=== PATIENT | female | born 1945 | race Two or more races ===

== ENCOUNTER 2022-08-09 20:46 | Inpatient (IN) | payer OTHER ==
[~2022-08-09] VITALS: Ht 157.5 cm; Wt 76.2 kg
[2022-08-09 23:08] LABS: Calcium 8.3 mg/dL (8.5-10.1); Potassium 3.9 mmol/L (3.5-5.1)
[2022-08-09 23:13] LABS: Albumin 2.6 g/dL (3.4-5.0); BUN/Creatinine Ratio 45.8
[2022-08-09 23:15] LABS: Basophils # (auto) 0.1 10 ^3/uL (0-0.2); Basophils % (auto) 0.6 % (0.0-2.0); Bilirubin, Total 1.1 mg/dL (0.2-1.0); Eosinophils # (auto) 0 10 ^3/uL (0-0.8); Eosinophils % (auto) 0.2 % (0.0-7.0); Hematocrit 28.1 % (36.0-46.0); Lymphocytes % (auto) 20.3 % (10.0-50.0); Mean Corpuscular Hgb Conc. 32.1 g/dL (32.0-36.0); Mean Corpuscular Volume 84.1 fL (80.0-100.0); Monocytes # (auto) 0.5 10 ^3/uL (0-1.3); Monocytes % (auto) 5.1 % (0.0-12.0); Neutrophils # (auto) 7.2 10 ^3/uL (1.6-8.6); Neutrophils % (auto) 73.8 % (37.0-80.0); Red Blood Cells 3.34 10^6/uL (4.0-5.20); Red Cell Distribution Width 14.3 % (11.8-14.3); Total Protein 6.3 g/dL (6.4-8.2); White Blood Cell 9.8 10^3/uL (4.4-10.8)
[2022-08-09] MEDS ORDERED: PANTOPRAZOLE 80 MG in SODIUM CHL 0.9% 100 ML IV ONE (23:15)
[2022-08-09] MEDS ORDERED: PANTOPRAZOLE 40mg/50ML NS AE 50 ML IV ONE (23:15)
[2022-08-09] MEDS ORDERED: ONDANSETRON HCL 4 MG/2 ML VIAL IV ONE (23:45)
[2022-08-09] MEDS ORDERED: diphenhdrAMINE HCL 50 MG/1 ML VL IV ONE (23:45)
[2022-08-09] MEDS ORDERED: METOCLOPRAMIDE HCL 5MG/ml INJ 2ml VIAL IV ONE (23:45)
[2022-08-09] MEDS ORDERED: LACTATED RINGER'S 2,000 ML IV ONE (23:45)
[2022-08-09] MEDS ORDERED: IOHEXOL 350 MG/ML 100ML IJ ONE (23:52)
[2022-08-09 23:53] LABS: INR 1.13 (0.9-1.15); Partial Thromboplastin Time 23.5 sec (24.6-33.4)
[2022-08-10] MEDS ORDERED: ONDANSETRON HCL 4 MG/2 ML VIAL ONE (00:20)
[2022-08-10 00:25] LABS: Lactic Acid w/Reflex 2.8 mmol/L (0.4-2.0)
[2022-08-10] MEDS ORDERED: PANTOPRAZOLE 80 MG in SODIUM CHL 0.9% 100 ML IV ONE (00:30)
[2022-08-10] MEDS ORDERED: PANTOPRAZOLE 40 MG/10 ML VIAL INJ IV ONE (00:41)
[2022-08-10] MEDS ORDERED: LORazepam 2MG/ML-1ML VIAL IV ONE (01:45)
[2022-08-10] MEDS ORDERED: cefTRIAXone SOD 1,000 MG VL IV ONE (03:15)
[2022-08-10] MEDS ORDERED: ACETAMINOPHEN 325 MG TAB PO PRN (03:30)
[2022-08-10] MEDS ORDERED: DOCUSATE SOD 100 MG CAP PO PRN (03:30)
[2022-08-10] MEDS ORDERED: TEMAZEPAM 15 MG CAP PO PRN (03:30)
[2022-08-10] MEDS ORDERED: hydrALAZINE HCL 20 MG/ML VL IV PRN (03:30)
[2022-08-10] MEDS ORDERED: NITROGLYCERIN 0.4 MG SL TAB SL PRN (04:30)
[2022-08-10] MEDS ORDERED: MORPHINE SULFATE INJ 2 MG/ml SYRG IV PRN (04:30)
[2022-08-10] MEDS: SODIUM CHLORIDE 0.9% 1,000 ML IV SCH ×2 (06:08→20:27)
[2022-08-10] MEDS: metroNIDAZOLE 500MG/100ML 100 ML IV SCH ×3 (06:37→22:37)
[2022-08-10] MEDS ORDERED: cefTRIAXone 1GM/50ML D5W 50 ML IV ONE (06:45)
[2022-08-10 07:33] LABS: Potassium 3.7 mmol/L (3.5-5.1)
[2022-08-10 07:46] LABS: Albumin 2.5 g/dL (3.4-5.0); BUN/Creatinine Ratio 57.6; Calcium 7.6 mg/dL (8.5-10.1); Total Protein 5.7 g/dL (6.4-8.2)
[2022-08-10 08:13] LABS: Basophils # (auto) 0 10 ^3/uL (0-0.2); Eosinophils # (auto) 0 10 ^3/uL (0-0.8); Hematocrit 24.2 % (36.0-46.0); Hemoglobin 7.9 g/dL (12.2-16.2); Mean Corpuscular Volume 83.7 fL (80.0-100.0); Monocytes # (auto) 0.5 10 ^3/uL (0-1.3); Nucleated Red Blood Cells % 0.1 %
[2022-08-10 08:15] LABS: Basophils % (auto) 0.3 % (0.0-2.0); Lymphocytes # (auto) 2.8 10 ^3/uL (0.4-5.4); Lymphocytes % (auto) 30.1 % (10.0-50.0); Mean Corpuscular Hemoglobin 27.1 pg (28.0-32.0); Mean Corpuscular Hgb Conc. 32.4 g/dL (32.0-36.0); Monocytes % (auto) 5.4 % (0.0-12.0); Neutrophils # (auto) 5.9 10 ^3/uL (1.6-8.6); Neutrophils % (auto) 64.2 % (37.0-80.0); Red Cell Distribution Width 14.2 % (11.8-14.3); White Blood Cell 9.2 10^3/uL (4.4-10.8)
[2022-08-10] MEDS ORDERED: PANTOPRAZOLE 40 MG/10 ML VIAL INJ IV SCH (10:00)
[2022-08-10 12:51] LABS: Urine Bacteria MANY /hpf (None Seen); Urine Blood Negative /uL (Negative); Urine Mucus FEW (None Seen); Urine Specific Gravity 1.047 (1.001-1.035); Urine WBC 1 /hpf (0 - 5)
[2022-08-10 14:26] LABS: Basophils # (auto) 0 10 ^3/uL (0-0.2); Basophils % (auto) 0.3 % (0.0-2.0); Eosinophils # (auto) 0 10 ^3/uL (0-0.8); Eosinophils % (auto) 0.3 % (0.0-7.0); Hematocrit 23.1 % (36.0-46.0); Hemoglobin 7.3 g/dL (12.2-16.2); Lymphocytes % (auto) 40.6 % (10.0-50.0); Mean Corpuscular Hemoglobin 26.7 pg (28.0-32.0); Mean Corpuscular Hgb Conc. 31.9 g/dL (32.0-36.0); Mean Corpuscular Volume 83.9 fL (80.0-100.0); Monocytes # (auto) 0.5 10 ^3/uL (0-1.3); Monocytes % (auto) 6.5 % (0.0-12.0); Neutrophils # (auto) 3.9 10 ^3/uL (1.6-8.6); Neutrophils % (auto) 52.3 % (37.0-80.0); Nucleated Red Blood Cells % 0.1 %; Red Blood Cells 2.75 10^6/uL (4.0-5.20); Red Cell Distribution Width 14.3 % (11.8-14.3); White Blood Cell 7.4 10^3/uL (4.4-10.8)
[2022-08-10] MEDS ORDERED: OCTREOTIDE ACETATE 100 MCG in SODIUM CHL 0.9% 50 ML IV ONE (14:45)
[2022-08-10] MEDS ORDERED: OCTREOTIDE ACETATE 500 MCG in SODIUM CHL 0.9% 99 ML IV SCH (14:45)
[2022-08-10] MEDS: ONDANSETRON HCL 4 MG/2 ML VIAL IV PRN (15:58)
[2022-08-10] MEDS: PANTOPRAZOLE 40mg/50ML NS AE 50 ML IV SCH (20:26)
[2022-08-11] MEDS: PANTOPRAZOLE 40mg/50ML NS AE 50 ML IV SCH ×3 (00:59→11:17)
[2022-08-11] MEDS ORDERED: OCTREOTIDE ACETATE 500 MCG/ML VL ONE (03:00)
[2022-08-11] MEDS: OCTREOTIDE ACETATE 500 MCG in SODIUM CHL 0.9% 99 ML IV SCH ×3 (04:12→22:11)
[2022-08-11 05:00] VITALS: BP 99/49
[2022-08-11] MEDS: metroNIDAZOLE 500MG/100ML 100 ML IV SCH (06:13)
[2022-08-11 06:24] LABS: Basophils # (auto) 0 10 ^3/uL (0-0.2); Basophils % (auto) 0.4 % (0.0-2.0); Eosinophils # (auto) 0.1 10 ^3/uL (0-0.8); Hemoglobin 7.2 g/dL (12.2-16.2); Lymphocytes # (auto) 2.1 10 ^3/uL (0.4-5.4); Mean Corpuscular Hemoglobin 27.3 pg (28.0-32.0); Neutrophils # (auto) 2.2 10 ^3/uL (1.6-8.6)
[2022-08-11 06:30] LABS: Eosinophils % (auto) 1.2 % (0.0-7.0); Hematocrit 22.2 % (36.0-46.0); Lymphocytes % (auto) 43.8 % (10.0-50.0); Mean Corpuscular Hgb Conc. 32.4 g/dL (32.0-36.0); Mean Corpuscular Volume 84.2 fL (80.0-100.0); Monocytes # (auto) 0.4 10 ^3/uL (0-1.3); Monocytes % (auto) 7.6 % (0.0-12.0); Nucleated Red Blood Cells % 0.3 %; Red Blood Cells 2.63 10^6/uL (4.0-5.20); Red Cell Distribution Width 14.5 % (11.8-14.3); White Blood Cell 4.7 10^3/uL (4.4-10.8)
[2022-08-11 06:54] LABS: Potassium 3.9 mmol/L (3.5-5.1)
[2022-08-11] MEDS: ONDANSETRON HCL 4 MG/2 ML VIAL IV PRN ×4 (06:58→22:11)
[2022-08-11 07:00] LABS: Albumin 2.6 g/dL (3.4-5.0); BUN/Creatinine Ratio 33.8; Bilirubin, Total 0.8 mg/dL (0.2-1.0); Calcium 7.4 mg/dL (8.5-10.1); Total Protein 5.5 g/dL (6.4-8.2)
[2022-08-11] MEDS: MORPHINE SULFATE INJ 2 MG/ml SYRG IV PRN ×2 (12:20→16:37)
[2022-08-11] MEDS ORDERED: LIDOCAINE VISCOUS 2% 15ML UD ONE (12:49)
[2022-08-11] MEDS ORDERED: FLUMAZENIL 0.1 MG/ML INJ 10ML MDV IV ONE (12:49)
[2022-08-11] MEDS ORDERED: NALOXONE HCL 0.4 MG/ML VIAL ONE (12:49)
[2022-08-11] MEDS ORDERED: MIDAZOLAM HCL 2MG/2ML 2ml VIAL (1mg/ml) ONE (12:50)
[2022-08-11] MEDS: SODIUM CHLORIDE 0.9% 1,000 ML IV SCH (12:50)
[2022-08-11] MEDS ORDERED: fentaNYL CITRATE 100 MCG/2 ML VL ONE (12:51)
[2022-08-11] MEDS ORDERED: diphenhdrAMINE HCL 50 MG/1 ML VL ONE (12:51)
[2022-08-11 15:25] VITALS: BP 101/55
[2022-08-12] MEDS: SODIUM CHLORIDE 0.9% 1,000 ML IV SCH ×2 (05:30→23:12)
[2022-08-12 08:00] VITALS: BP 105/57
[2022-08-12] MEDS: ONDANSETRON HCL 4 MG/2 ML VIAL IV PRN (08:58)
[2022-08-12 09:00] VITALS: BP 105/57
[2022-08-12] MEDS: MORPHINE SULFATE INJ 2 MG/ml SYRG IV PRN (09:00)
[2022-08-12 12:54] VITALS: BP 104/62
[2022-08-12 17:00] VITALS: BP 111/56
[2022-08-12] MEDS: OCTREOTIDE ACETATE 500 MCG in SODIUM CHL 0.9% 99 ML IV SCH (20:55)
[2022-08-12 21:44] VITALS: BP 123/60
[2022-08-13 05:00] VITALS: BP 102/57
[2022-08-13 06:28] LABS: Basophils # (auto) 0.1 10 ^3/uL (0-0.2); Eosinophils # (auto) 0.1 10 ^3/uL (0-0.8); Monocytes # (auto) 0.3 10 ^3/uL (0-1.3); Neutrophils # (auto) 2.1 10 ^3/uL (1.6-8.6); Red Cell Distribution Width 14.4 % (11.8-14.3); White Blood Cell 4.1 10^3/uL (4.4-10.8)
[2022-08-13 06:33] LABS: Basophils % (auto) 1.2 % (0.0-2.0); Eosinophils % (auto) 3.6 % (0.0-7.0); Hematocrit 20.3 % (36.0-46.0); Lymphocytes # (auto) 1.6 10 ^3/uL (0.4-5.4); Lymphocytes % (auto) 37.7 % (10.0-50.0); Mean Corpuscular Hemoglobin 28.1 pg (28.0-32.0); Monocytes % (auto) 7.8 % (0.0-12.0); Neutrophils % (auto) 49.7 % (37.0-80.0); Nucleated Red Blood Cells % 0.1 %; Red Blood Cells 2.39 10^6/uL (4.0-5.20)
[2022-08-13 06:44] LABS: Calcium 7.5 mg/dL (8.5-10.1); Magnesium 1.9 mg/dL (1.6-2.6)
[2022-08-13 06:46] LABS: Hemoglobin 6.7 g/dL (12.2-16.2)
[2022-08-13 06:49] LABS: BUN/Creatinine Ratio 17.9
[2022-08-13 08:45] VITALS: BP 111/47
[2022-08-13 09:00] VITALS: BP_SYST 111; BP_SYST 117; BP_DIAS 54; BP_DIAS 60
[2022-08-13 10:52] VITALS: BP 100/50
[2022-08-13 12:45] VITALS: BP 103/53
[2022-08-13] MEDS ORDERED: PANTOPRAZOLE 40 MG TAB PO SCH (13:00)
[2022-08-13] MEDS ORDERED: PANT40TA2 PO (13:02)
[2022-08-13] MEDS ORDERED: NADO20TA2 PO (13:02)
[2022-08-13 14:36] LABS: Hematocrit 26.9 % (36.0-46.0); Mean Corpuscular Hemoglobin 28.6 pg (28.0-32.0); Mean Corpuscular Hgb Conc. 33.4 g/dL (32.0-36.0); Mean Corpuscular Volume 85.5 fL (80.0-100.0); Red Blood Cells 3.15 10^6/uL (4.0-5.20); Red Cell Distribution Width 14.7 % (11.8-14.3); White Blood Cell 6.7 10^3/uL (4.4-10.8)
[2022-08-13] MEDS: SODIUM CHLORIDE 0.9% 1,000 ML IV SCH (14:50)
[2022-08-13] MEDS ORDERED: HYDR-4902 PO (14:59)
[2022-08-13 16:31] LABS: Band Neutrophils % (manual) 0; Basophils % (manual) 0 (0.0-2.0); Blast Cells 0; Metamyelocytes % 0; Myelocytes % 0; Promyelocytes % 0; Reactive Lymphocytes 0
[2022-08-13 16:45] LABS: Eosinophils % (manual) 1 (0-7); Lymphocytes % (manual) 27 (10.0-50.0); Monocytes % (manual) 6 (0-12)
[2022-08-13] MEDS ORDERED: PROPRANOLOL HCL 20 MG TAB PO SCH (22:00)
== END 2022-08-13 16:43 | disposition home health service (06) | DRG 300 ==
LOC: EDBD 20:46 → ER 20:46 → TELE 08-10 04:23 → TELE-WESTW 08-11 15:00
PROVIDERS: ADMIT Nurse Practitioner Family; ATTEND Internal Medicine
PROC: 0DB68ZX Excision of Stomach, Via Natural or Artificial Opening Endoscopic, Diagnostic (ICD-10-PCS; principal; 2022-08-11 13:30)
PROC: 30233N1 Transfusion of Nonautologous Red Blood Cells into Peripheral Vein, Percutaneous Approach (ICD-10-PCS; 2022-08-13)
DX: I86.4 Gastric varices (principal); D61.818 Other pancytopenia; E87.20 Acidosis, unspecified; D68.9 Coagulation defect, unspecified; J98.11 Atelectasis; K76.6 Portal hypertension; E88.09 Other disorders of plasma-protein metabolism, not elsewhere classified; I10 Essential (primary) hypertension; K31.89 Other diseases of stomach and duodenum; K52.9 Noninfective gastroenteritis and colitis, unspecified; K74.60 Unspecified cirrhosis of liver; Z88.8 Allergy status to other drugs, medicaments and biological substances; Z88.5 Allergy status to narcotic agent
CPT/HCPCS: 36415; 70460; 71260; 73562; 74177; 80048; 80053; 81001; 83036; 83605; 83690; 83735; 84484; 85007; 85025; 85027; 85610; 85730; 86850; 86900; 86901; 86920; 87426; 96365; 96367; 96375; 99291; C9113; G0378; J0696; J2250; J2405; J3490

== ENCOUNTER 2022-09-17 16:20 | Emergency (ER) | payer OTHER ==
[~2022-09-17] VITALS: Ht 157.5 cm; Wt 54.0 kg
[~2022-09-17 16:20] MED LIST: HYDR-4902 PO; NADO20TA2 PO; PANT40TA2 PO
[2022-09-17 18:35] LABS: Albumin 3.3 g/dL (3.4-5.0); BUN/Creatinine Ratio 29.7; Calcium 8.1 mg/dL (8.5-10.1); Potassium 3.8 mmol/L (3.5-5.1)
[2022-09-17 18:37] LABS: Bilirubin, Total 0.4 mg/dL (0.2-1.0)
[2022-09-17 18:56] LABS: INR 1.03 (0.9-1.15); Partial Thromboplastin Time 23.6 sec (24.6-33.4)
[2022-09-17] MEDS ORDERED: SODIUM CHLORIDE 0.9% 500 ML IVB ONE (19:15)
[2022-09-17] MEDS ORDERED: ONDANSETRON HCL 4 MG/2 ML VIAL IV ONE (19:15)
[2022-09-17] MEDS ORDERED: MORPHINE SULFATE 4 MG/ML SYR/VIAL IV ONE (19:15)
[2022-09-17 21:26] LABS: Basophils # (auto) 0.1 10 ^3/uL (0-0.2); Eosinophils # (auto) 0.1 10 ^3/uL (0-0.8); Monocytes # (auto) 0.9 10 ^3/uL (0-1.3); Neutrophils % (auto) 46.3 % (37.0-80.0); Red Cell Distribution Width 18.2 % (11.8-14.3)
[2022-09-17 21:28] LABS: Basophils % (auto) 0.6 % (0.0-2.0); Eosinophils % (auto) 1.3 % (0.0-7.0); Hematocrit 29.3 % (36.0-46.0); Hemoglobin 9.3 g/dL (12.2-16.2); Lymphocytes # (auto) 4.4 10 ^3/uL (0.4-5.4); Lymphocytes % (auto) 42.6 % (10.0-50.0); Mean Corpuscular Hemoglobin 23.7 pg (28.0-32.0); Mean Corpuscular Hgb Conc. 31.8 g/dL (32.0-36.0); Mean Corpuscular Volume 74.5 fL (80.0-100.0); Monocytes % (auto) 9.2 % (0.0-12.0); Neutrophils # (auto) 4.7 10 ^3/uL (1.6-8.6); Nucleated Red Blood Cells % 0.1 %; Red Blood Cells 3.93 10^6/uL (4.0-5.20); White Blood Cell 10.2 10^3/uL (4.4-10.8)
[2022-09-17 23:28] VITALS: BP 102/63
== END 2022-09-17 23:29 | disposition home or self-care (01) ==
LOC: ER 16:20
DX: D64.9 Anemia, unspecified (principal); R11.2 Nausea with vomiting, unspecified; I10 Essential (primary) hypertension; Z88.5 Allergy status to narcotic agent
CPT/HCPCS: 36415; 74176; 80053; 85025; 85610; 85730; 86850; 86900; 86901

== ENCOUNTER 2023-12-19 20:03 | Inpatient (IN) | payer OTHER ==
[~2023-12-19] VITALS: Ht 167.6 cm; Wt 59.5 kg
[~2023-12-19 20:03] MED LIST changes: +NADO20TA PO; -NADO20TA2 PO
[2023-12-19] MEDS: METOCLOPRAMIDE HCL 5MG/ml INJ 2ml VIAL IV ONE (23:21)
[2023-12-19] MEDS: HYDROmorphone HCL 2 MG/ML VL/or syr IV ONE (23:21)
[2023-12-20] VITALS (11 sets, daily range): BP systolic 108–134; BP diastolic 59–70; PULSE 63–78; RESP 15–20; TEMP 97.9–98.3; O2SAT 90–99
[2023-12-20] MEDS ORDERED: NITROGLYCERIN 0.4 MG SL TAB SL PRN (00:15)
[2023-12-20] MEDS ORDERED: MORPHINE SULFATE INJ 2 MG/ml SYRG IV PRN (00:15)
[2023-12-20] MEDS ORDERED: ONDANSETRON HCL 4 MG/2 ML VIAL IV PRN (00:15)
[2023-12-20 00:23] LABS: Basophils # (auto) 0 10 ^3/uL (0-0.2); Basophils % (auto) 0.2 % (0.0-2.0); Eosinophils # (auto) 0 10 ^3/uL (0-0.8); Eosinophils % (auto) 0.3 % (0.0-7.0); Lymphocytes % (auto) 8.6 % (10.0-50.0); Monocytes # (auto) 0.8 10 ^3/uL (0-1.3); Monocytes % (auto) 6.5 % (0.0-12.0); Neutrophils % (auto) 84.4 % (37.0-80.0)
[2023-12-20 00:28] LABS: Hematocrit 39.1 % (36.0-46.0); Hemoglobin 13.2 g/dL (12.2-16.2); Mean Corpuscular Hemoglobin 31.1 pg (28.0-32.0); Mean Corpuscular Hgb Conc. 33.8 g/dL (32.0-36.0); Mean Corpuscular Volume 92.1 fL (80.0-100.0); Neutrophils # (auto) 10.2 10 ^3/uL (1.6-8.6); Nucleated Red Blood Cells % 0.1 %; Red Blood Cells 4.24 10^6/uL (4.0-5.20); Red Cell Distribution Width 13.4 % (11.8-14.3); White Blood Cell 12.1 10^3/uL (4.4-10.8)
[2023-12-20 00:33] LABS: INR 1.13 (0.9-1.15); Prothrombin Time 11.9 sec (9.3-11.8)
[2023-12-20 00:40] LABS: Alanine Aminotransferase 26 U/L (7-40); Albumin 3.9 g/dL (3.2-4.8); Alkaline Phosphatase 116 U/L (46-116); Anion Gap 8 (5-15); Aspartate Aminotransferase 31 U/L (13-40); BUN/Creatinine Ratio 17.3 (10.0-20.0); Blood Urea Nitrogen 13 mg/dL (9-23); Calcium 9.1 mg/dL (8.7-10.4); Carbon Dioxide 24 mmol/L (20-30); Chloride 107 mmol/L (98-107); Glucose 163 mg/dL (74-106); Lipase 37 U/L (12-53); Potassium 3.6 mmol/L (3.5-5.1); Sodium 139 mmol/L (136-145)
[2023-12-20 00:41] LABS: Bilirubin, Total 1.2 mg/dL (0.2-1.0)
[2023-12-20 01:08] LABS: Platelet Estimate Decreased
[2023-12-20] MEDS ORDERED: MORPHINE SULFATE INJ 2 MG/ml SYRG IV ONE (03:45)
[2023-12-20] MEDS: MORPHINE SULFATE INJ 2 MG/ml SYRG IV PRN ×2 (04:01→08:26)
[2023-12-20 06:28] LABS: Anion Gap 5 (5-15); Carbon Dioxide 27 mmol/L (20-30); Chloride 105 mmol/L (98-107); Potassium 3.6 mmol/L (3.5-5.1); Sodium 137 mmol/L (136-145)
[2023-12-20 06:29] LABS: Calcium 8.9 mg/dL (8.5-10.1)
[2023-12-20 06:34] LABS: BUN/Creatinine Ratio 17.2 (10.0-20.0); Blood Urea Nitrogen 11 mg/dL (9-23); Glucose 136 mg/dL (74-106)
[2023-12-20 07:22] LABS: Basophils # (auto) 0 10 ^3/uL (0-0.2); Basophils % (auto) 0.2 % (0.0-2.0); Eosinophils # (auto) 0 10 ^3/uL (0-0.8); Eosinophils % (auto) 0.1 % (0.0-7.0); Hematocrit 38.7 % (36.0-46.0); Hemoglobin 13.5 g/dL (12.2-16.2); Lymphocytes % (auto) 10.8 % (10.0-50.0); Mean Corpuscular Hemoglobin 32.2 pg (28.0-32.0); Mean Corpuscular Hgb Conc. 34.9 g/dL (32.0-36.0); Mean Corpuscular Volume 92.3 fL (80.0-100.0); Monocytes # (auto) 0.6 10 ^3/uL (0-1.3); Monocytes % (auto) 6.5 % (0.0-12.0); Neutrophils # (auto) 7.5 10 ^3/uL (1.6-8.6); Neutrophils % (auto) 82.4 % (37.0-80.0); Red Blood Cells 4.19 10^6/uL (4.0-5.20); Red Cell Distribution Width 13.4 % (11.8-14.3); White Blood Cell 9.1 10^3/uL (4.4-10.8)
[2023-12-20 09:34] LABS: Platelet Estimate Adequate
[2023-12-20] MEDS: PANTOPRAZOLE 40 MG/10 ML VIAL INJ IV SCH (09:41)
[2023-12-20] MEDS: HEPARIN SODIUM (PORCINE) 5000 UNITS/ML 1ML VIAL SC SCH (09:48)
[2023-12-20] MEDS ORDERED: ENOXAPARIN SOD 40 MG/0.4 ML SYRINGE SC SCH (10:00)
[2023-12-20] MEDS: HYDROmorphone HCL 2 MG/ML VL/or syr IV PRN (15:08)
[2023-12-21] VITALS (10 sets, daily range): BP systolic 101–141; BP diastolic 58–77; PULSE 60–78; RESP 15–19; TEMP 97.5–98.5; O2SAT 92–98
[2023-12-21] MEDS: traMADol HCL 50 MG TAB PO PRN (03:37)
[2023-12-21 06:07] LABS: Basophils # (auto) 0 10 ^3/uL (0-0.2); Basophils % (auto) 0.1 % (0.0-2.0); Eosinophils # (auto) 0 10 ^3/uL (0-0.8); Eosinophils % (auto) 0.2 % (0.0-7.0); Hematocrit 39.1 % (36.0-46.0); Hemoglobin 13.5 g/dL (12.2-16.2); Lymphocytes # (auto) 1.9 10 ^3/uL (0.4-5.4); Lymphocytes % (auto) 17.8 % (10.0-50.0); Mean Corpuscular Hemoglobin 31.7 pg (28.0-32.0); Mean Corpuscular Hgb Conc. 34.5 g/dL (32.0-36.0); Mean Corpuscular Volume 91.8 fL (80.0-100.0); Monocytes # (auto) 0.9 10 ^3/uL (0-1.3); Neutrophils # (auto) 7.6 10 ^3/uL (1.6-8.6); Neutrophils % (auto) 72.9 % (37.0-80.0); Nucleated Red Blood Cells % 0.1 %; Red Blood Cells 4.26 10^6/uL (4.0-5.20); Red Cell Distribution Width 13.4 % (11.8-14.3); White Blood Cell 10.4 10^3/uL (4.4-10.8)
[2023-12-21 06:10] LABS: Chloride 105 mmol/L (98-107); Potassium 3.4 mmol/L (3.5-5.1); Sodium 140 mmol/L (136-145)
[2023-12-21 06:11] LABS: Anion Gap 9 (5-15); Calcium 8.9 mg/dL (8.7-10.4); Carbon Dioxide 26 mmol/L (20-30)
[2023-12-21 06:16] LABS: Blood Urea Nitrogen 12 mg/dL (9-23); Glucose 109 mg/dL (74-106)
[2023-12-21] MEDS ORDERED: fentaNYL CITRATE 100 MCG/2 ML VL ONE (13:48)
[2023-12-21] MEDS ORDERED: MIDAZOLAM HCL 2MG/2ML 2ml VIAL (1mg/ml) ONE (13:49)
[2023-12-21] MEDS ORDERED: PROPOFOL 10 MG/ML 20 ML IV ONE (13:51)
[2023-12-21] MEDS ORDERED: ePHEDrine SULFATE 50 MG/ML AMP ONE (15:03)
[2023-12-21] MEDS: ROPIVACAINE 0.5% (5MG/ML) 20ML AMPULE IJ ONE (15:47)
[2023-12-21] MEDS: ceFAZolin 1GM/50ML 50 ML IV SCH (22:19)
[2023-12-21] MEDS: HYDROcodone-ACET 5/325MG TAB PO PRN (22:44)
[2023-12-22] VITALS (10 sets, daily range): BP systolic 94–101; BP diastolic 46–57; PULSE 66–81; RESP 16–19; TEMP 97.8–98.5; O2SAT 96–100
[2023-12-22 06:38] LABS: Basophils # (auto) 0 10 ^3/uL (0-0.2); Basophils % (auto) 0.2 % (0.0-2.0); Eosinophils # (auto) 0.1 10 ^3/uL (0-0.8); Eosinophils % (auto) 1.1 % (0.0-7.0); Hematocrit 32.4 % (36.0-46.0); Hemoglobin 11.6 g/dL (12.2-16.2); Lymphocytes # (auto) 1.7 10 ^3/uL (0.4-5.4); Lymphocytes % (auto) 22.2 % (10.0-50.0); Mean Corpuscular Hemoglobin 32.4 pg (28.0-32.0); Mean Corpuscular Hgb Conc. 35.7 g/dL (32.0-36.0); Mean Corpuscular Volume 90.9 fL (80.0-100.0); Monocytes # (auto) 0.9 10 ^3/uL (0-1.3); Monocytes % (auto) 12.2 % (0.0-12.0); Neutrophils # (auto) 4.8 10 ^3/uL (1.6-8.6); Neutrophils % (auto) 64.3 % (37.0-80.0); Red Blood Cells 3.56 10^6/uL (4.0-5.20); Red Cell Distribution Width 13.1 % (11.8-14.3); White Blood Cell 7.5 10^3/uL (4.4-10.8)
[2023-12-22 06:39] LABS: Chloride 101 mmol/L (98-107); Potassium 3.4 mmol/L (3.5-5.1)
[2023-12-22 06:40] LABS: Anion Gap 2 (5-15); Calcium 8.6 mg/dL (8.5-10.1); Carbon Dioxide 30 mmol/L (20-30)
[2023-12-22 06:44] LABS: Sodium 133 mmol/L (136-145)
[2023-12-22 06:45] LABS: Blood Urea Nitrogen 12 mg/dL (9-23); Glucose 111 mg/dL (74-106)
[2023-12-22] MEDS: ACETAMINOPHEN 325 MG TAB PO PRN (13:46)
[2023-12-23] VITALS (7 sets, daily range): BP systolic 96–114; BP diastolic 47–58; PULSE 70–87; RESP 16–18; TEMP 98–99.1; O2SAT 97–99
[2023-12-23 07:03] LABS: Basophils # (auto) 0 10 ^3/uL (0-0.2); Basophils % (auto) 0.2 % (0.0-2.0); Eosinophils # (auto) 0.1 10 ^3/uL (0-0.8); Hematocrit 31.7 % (36.0-46.0); Hemoglobin 11.2 g/dL (12.2-16.2); Lymphocytes % (auto) 20.3 % (10.0-50.0); Mean Corpuscular Hgb Conc. 35.2 g/dL (32.0-36.0); Mean Corpuscular Volume 90.8 fL (80.0-100.0); Monocytes % (auto) 10.4 % (0.0-12.0); Neutrophils # (auto) 6.6 10 ^3/uL (1.6-8.6); Neutrophils % (auto) 68.1 % (37.0-80.0); Red Blood Cells 3.49 10^6/uL (4.0-5.20); Red Cell Distribution Width 13.2 % (11.8-14.3); White Blood Cell 9.7 10^3/uL (4.4-10.8)
[2023-12-23 08:07] LABS: Chloride 100 mmol/L (98-107); Potassium 3.4 mmol/L (3.5-5.1); Sodium 132 mmol/L (136-145)
[2023-12-23 08:08] LABS: Anion Gap 4 (5-15); Calcium 8.7 mg/dL (8.5-10.1); Carbon Dioxide 28 mmol/L (20-30)
[2023-12-23 08:13] LABS: BUN/Creatinine Ratio 23.4 (10.0-20.0); Blood Urea Nitrogen 11 mg/dL (9-23); Glucose 101 mg/dL (74-106)
[2023-12-23 09:14] LABS: Hepatitis B Surface Antigen Negative (Negative)
[2023-12-23 09:36] LABS: Hepatitis C Antibody Negative (Negative)
[2023-12-23] MEDS ORDERED: LISI10TA34 PO (10:49)
[2023-12-23] MEDS ORDERED: ELTR12.5 PO (10:49)
[2023-12-23] MEDS ORDERED: ALEN70TA74 PO (10:49)
[2023-12-23] MEDS ORDERED: FERR325T20 PO (10:49)
[2023-12-23] MEDS ORDERED: URSO1TAB7 PO (10:49)
[2023-12-23] MEDS: DOCUSATE SOD 100 MG CAP PO PRN (17:56)
[2023-12-24] VITALS (8 sets, daily range): BP systolic 101–114; BP diastolic 46–55; PULSE 73–93; RESP 17–20; TEMP 98.1–98.9; O2SAT 96–99
[2023-12-24 07:17] LABS: Basophils # (auto) 0 10 ^3/uL (0-0.2); Basophils % (auto) 0.2 % (0.0-2.0); Eosinophils # (auto) 0.1 10 ^3/uL (0-0.8); Eosinophils % (auto) 1.1 % (0.0-7.0); Hematocrit 30.1 % (36.0-46.0); Hemoglobin 10.7 g/dL (12.2-16.2); Lymphocytes # (auto) 1.4 10 ^3/uL (0.4-5.4); Lymphocytes % (auto) 16.3 % (10.0-50.0); Mean Corpuscular Hemoglobin 32.3 pg (28.0-32.0); Mean Corpuscular Hgb Conc. 35.6 g/dL (32.0-36.0); Mean Corpuscular Volume 90.7 fL (80.0-100.0); Monocytes # (auto) 0.8 10 ^3/uL (0-1.3); Monocytes % (auto) 9.7 % (0.0-12.0); Neutrophils # (auto) 6.3 10 ^3/uL (1.6-8.6); Neutrophils % (auto) 72.7 % (37.0-80.0); Nucleated Red Blood Cells % 0.1 %; Red Blood Cells 3.32 10^6/uL (4.0-5.20); Red Cell Distribution Width 13.2 % (11.8-14.3); White Blood Cell 8.6 10^3/uL (4.4-10.8)
[2023-12-24 07:37] LABS: Anion Gap 9 (5-15); Calcium 8.7 mg/dL (8.7-10.4); Carbon Dioxide 29 mmol/L (20-30); Chloride 99 mmol/L (98-107); Potassium 3.4 mmol/L (3.5-5.1); Sodium 137 mmol/L (136-145)
[2023-12-24 07:43] LABS: Glucose 97 mg/dL (74-106)
[2023-12-24 07:44] LABS: BUN/Creatinine Ratio 24.4 (10.0-20.0); Blood Urea Nitrogen 11 mg/dL (9-23)
[2023-12-25 00:47] VITALS: BP 104/55; PULSE 82; RESP 16; TEMP 97.4; O2SAT 98
[2023-12-25 01:00] VITALS: BP 104/55; PULSE 82; RESP 16; TEMP 97.4; O2SAT 98
== END 2023-12-25 01:15 | DRG 482 ==
LOC: ER 20:03 → EDBD 20:03 → TELE 12-20 00:09 → TELE-EAST 12-20 01:07
PROVIDERS: ADMIT Internal Medicine; ATTEND Internal Medicine
PROC: 0QS604Z Reposition Right Upper Femur with Internal Fixation Device, Open Approach (ICD-10-PCS; principal; 2023-12-21 14:38)
DX: S72.141A Displaced intertrochanteric fracture of right femur, initial encounter for closed fracture (principal); K74.60 Unspecified cirrhosis of liver; D72.829 Elevated white blood cell count, unspecified; I10 Essential (primary) hypertension; Z79.899 Other long term (current) drug therapy; Z88.8 Allergy status to other drugs, medicaments and biological substances; W01.0XXA Fall on same level from slipping, tripping and stumbling without subsequent striking against object, initial encounter; Y93.89 Activity, other specified; Y92.008 Other place in unspecified non-institutional (private) residence as the place of occurrence of the external cause; Y99.8 Other external cause status
CPT/HCPCS: 36415; 71045; 73501; 73502; 73700; 76000; 80048; 80053; 83605; 83690; 84484; 85025; 85610; 86803; 86850; 86900; 86901; 87340; 93005; 93306; 97110; 97116; 97163; 97530; A4565; C9113; G0378; J2250; J2704; J7042